=== PATIENT | female | born 1975 | race African-American/Black ===

== ENCOUNTER 2016-03-23 14:47 | Emergency (ER) | payer OTHER ==
[~2016-03-23] VITALS: Ht 170.2 cm; Wt 63.5 kg
[~2016-03-23 14:47] MED LIST: ALBUTEROL2.5 MG/31; BENTYL 10 MG CA10 MG PO; FLOVENT HFA 2220 MC1; MIRALAX255 GM PO; NORCO 5-325 TA1 EACH PO; PROAIR HFA8.5 GM; SINGULAIR 10 MG10 M1
[2016-03-23 16:02] VITALS: BP 129/95
== END 2016-03-23 16:04 | disposition home or self-care (01) ==
LOC: ER 14:47
DX: S60.221A Contusion of right hand, initial encounter (principal); J45.909 Unspecified asthma, uncomplicated; Z88.5 Allergy status to narcotic agent; Z88.8 Allergy status to other drugs, medicaments and biological substances; W20.8XXA Other cause of strike by thrown, projected or falling object, initial encounter; Y93.89 Activity, other specified; Y92.89 Other specified places as the place of occurrence of the external cause; Y99.0 Civilian activity done for income or pay

== ENCOUNTER 2016-09-25 10:58 | Emergency (ER) | payer OTHER ==
[~2016-09-25] VITALS: Ht 170.2 cm; Wt 63.5 kg
[2016-09-25 11:00] VITALS: BP 127/76
[2016-09-25 11:39] LABS: URINE BILIRUBIN NEGATIVE (Negative); URINE BLOOD TRACE (Negative); URINE COLOR YELLOW; URINE GLUCOSE-RANDOM* NEGATIVE (Negative); URINE KETONES NEGATIVE (Negative); URINE NITRITE NEGATIVE (Negative); URINE PROTEIN (DIPSTICK) NEGATIVE (Negative); URINE SPECIFIC GRAVITY <= 1.005 (1.003-1.035); URINE UROBILINOGEN 0.2 E.U./dl (0.2-1.0)
[2016-09-25] MEDS ORDERED: FLAGYL500 MG PO (12:49)
[2016-09-25] MEDS ORDERED: NORCO 5-325 TA1 EACH PO (13:21)
== END 2016-09-25 12:50 | disposition home or self-care (01) ==
LOC: ER 10:58
PROVIDERS: Emergency Medicine
DX: N73.9 Female pelvic inflammatory disease, unspecified (principal); N83.202 Unspecified ovarian cyst, left side; N76.0 Acute vaginitis; B96.89 Other specified bacterial agents as the cause of diseases classified elsewhere; J45.909 Unspecified asthma, uncomplicated; Z88.5 Allergy status to narcotic agent; Z88.8 Allergy status to other drugs, medicaments and biological substances

== ENCOUNTER 2016-11-06 21:42 | Emergency (ER) | payer OTHER ==
[~2016-11-06] VITALS: Ht 170.2 cm; Wt 63.5 kg
--- NOTE | ~2016-11-06 | EKG ---
[place] [address] [facility] [place] [address] ELECTROCARDIOGRAM REPORT Name: KISHORE TUBBS [facility] [id number] Admission: 11/06/16 Attend Phys: Discharge: 11/06/16 Date of : 73 Report #: [id number] THIS REPORT FOR: //name// [facility] ED Test Date: 2016-11-06 Test Time: 22:11:39 Pat Name: KISHORE TUBBS Department: Room: Gender: F Roving Frame [facility] 1975 Requested By: Jayashree Anna Order Number: [id number] MD: Ray David Measurements Intervals [place] Rate: 84 P: 47 TN: 138 QRS: 31 QRSD: 88 T: 32 QT: 365 QTc: 432 Interpretive Statements Sinus rhythm Ventricular premature complex Cannot rule out anteroseptal infarct, old No previous ECG available for comparison Electronically Signed On 11-07-2016 8:36:38 CDT by Ray David [email or web address] <ELECTRONICALLY SIGNED> By: Ray David MD, [facility] 11/07/16 0836 2211 2211 Ray David MD, FACC /EPI
[~2016-11-06 21:42] MED LIST changes: +FLAGYL500 MG PO
[2016-11-06] MEDS ORDERED: VENTOLIN HFA 1818 GM INH (23:17)
[2016-11-06] MEDS ORDERED: TESSALON PERLE100 MG PO (23:18)
[2016-11-06] MEDS ORDERED: IPRATROPIU0.2 MG/1 M INH (23:18)
[2016-11-06] MEDS ORDERED: ALBUTEROL2.5 MG/31 INH (23:18)
[2016-11-06] MEDS ORDERED: VIRTUSSIN AC L118 ML PO (23:18)
[2016-11-06 23:31] VITALS: BP 134/74
== END 2016-11-06 23:32 | disposition home or self-care (01) ==
LOC: ER 21:42
DX: J45.901 Unspecified asthma with (acute) exacerbation (principal); Z88.6 Allergy status to analgesic agent; Z88.8 Allergy status to other drugs, medicaments and biological substances

== ENCOUNTER 2018-05-27 10:21 | Emergency (ER) | payer OTHER ==
[~2018-05-27] VITALS: Ht 170.2 cm; Wt 72.6 kg
[~2018-05-27 10:21] MED LIST changes: +ACETAMINOPHEN-1 EAC1 PO; +ALBUTEROL2.5 MG/31 INH; +IPRATROPIU0.2 MG/1 M INH; +PREDNISONE 20 M20 MG PO; +PRILOSEC 20 MG20 MG PO; +PROVENTIL HFA6.7 G1 INH; +TESSALON PERLE100 MG PO; +VENTOLIN HFA 1818 GM INH; +VIRTUSSIN AC L118 ML PO; +ZOFRAN ODT8 MG PO
[2018-05-27] MEDS ORDERED: MOBIC15 MG PO (11:51)
[2018-05-27 11:59] VITALS: BP 133/82
== END 2018-05-27 12:06 | disposition home or self-care (01) ==
LOC: ER 10:21
DX: S80.862A Insect bite (nonvenomous), left lower leg, initial encounter (principal); S10.96XA Insect bite of unspecified part of neck, initial encounter; S00.261A Insect bite (nonvenomous) of right eyelid and periocular area, initial encounter; R23.8 Other skin changes; R51 Headache; J45.909 Unspecified asthma, uncomplicated; Z88.5 Allergy status to narcotic agent; Z88.8 Allergy status to other drugs, medicaments and biological substances; W57.XXXA Bitten or stung by nonvenomous insect and other nonvenomous arthropods, initial encounter; Y93.89 Activity, other specified; Y92.89 Other specified places as the place of occurrence of the external cause; Y99.8 Other external cause status

== ENCOUNTER 2018-06-03 23:15 | Emergency (ER) | payer OTHER ==
[~2018-06-03] VITALS: Ht 170.2 cm; Wt 72.6 kg
[~2018-06-03 23:15] MED LIST changes: +MOBIC15 MG PO
[2018-06-04] MEDS ORDERED: VENTOLIN HFA 1818 GM INH (00:49)
[2018-06-04] MEDS ORDERED: PREDNISONE 20 M20 MG PO (00:49)
[2018-06-04] MEDS ORDERED: BENADRYL25 MG PO (00:49)
[2018-06-04] MEDS ORDERED: ALBUTEROL2.5 MG/31 INH (00:49)
[2018-06-04 01:41] VITALS: BP 119/77
--- NOTE | 2018-06-04 08:21 | EKG ---
[address] [address] ELECTROCARDIOGRAM REPORT Name: KISHORE TUBBS Room #: [facility] Leandra#: [id number] ������������������ Admission: 06/03/18 ������������������ Attend Phys: Discharge: 06/04/18 ������������������ Date of : 73 Report #: [id number] ����������������������������������������������������������������� [id number] THIS REPORT FOR: //name// [facility] ED Test Date: 2018-06-03 Test Time: 23:36:32 Pat Name: KISHORE TUBBS Department: Room: Gender: F Apparel Fashion Designer: KKODJOCINDY : 1975 Requested By: Ana Joshi Order Number: [id number] MD: Ad Tobias Measurements Intervals [place] Rate: 92 P: 48 [place]: 139 QRS: 50 QRSD: 77 T: 28 QT: 333 QTc: 412 Interpretive Statements Sinus rhythm Baseline wander in lead(s) V1 Compared to ECG 10/25/2017 23:50:05 ST (T wave) deviation no longer present Electronically Signed On 06-04-2018 8:21:41 CDT by Ad Tobias [email or web address] ��������������������������������������������� <ELECTRONICALLY SIGNED> ���������������������������������������� By: Ad Tobias MD ��������������������������������������������� 06/04/18820 35 35 Ad Tobias MD /NAIMA
== END 2018-06-04 01:42 | disposition home or self-care (01) ==
LOC: ER 23:15
DX: J45.901 Unspecified asthma with (acute) exacerbation (principal); Z88.8 Allergy status to other drugs, medicaments and biological substances; Z88.6 Allergy status to analgesic agent